=== PATIENT | female | born 2005 | race Caucasian/White ===

== ENCOUNTER 2025-01-22 18:10 | Outpatient (CLI) | payer BC, SELFPAY ==
[2025-01-22 18:10] VITALS: BMI 28.3
[2025-01-22 18:28] VITALS: BP 127/80; PULSE 104
[2025-01-22 18:52] VITALS: BP 127/86; PULSE 93
[2025-01-22 19:08] VITALS: BP 124/67; PULSE 89
[2025-01-22 19:18] LABS: Nitrazine Paper, PH Negative
[2025-01-22 19:28] VITALS: BP 134/85; PULSE 106
[2025-01-22 19:38] VITALS: TEMP 36.8
[2025-01-22 19:43] VITALS: BP 134/85; PULSE 106; RESP 16; TEMP 36.8; O2SAT 100
== END 2025-01-22 19:43 | disposition home or self-care (01) ==
LOC: OPOB 18:15 → OBGYN 18:15
PROVIDERS: PCP Family Medicine; Visit Provider Family Medicine
DX: O26.899 Other specified pregnancy related conditions, unspecified trimester (principal); Z3A.00 Weeks of gestation of pregnancy not specified; W18.30XA Fall on same level, unspecified, initial encounter
CPT/HCPCS: 59025; 83986; 99211

== ENCOUNTER 2025-03-22 11:25 | Inpatient (IN) | payer OTHER, SELFPAY ==
[2025-03-22] VITALS (46 sets, daily range): BP systolic 94–155; BP diastolic 51–105; PULSE 81–127; TEMP 36.1–39.3; O2SAT 97–100; BMI 29.3
[2025-03-22 11:51] LABS: Hematocrit 36.2 % (36-47); Hemoglobin 11.90 g/dL (11.27-16.99); Mean Corpuscular HGB Conc 32.9 g/dL (30-55); Mean Corpuscular Hemoglobin 28.8 pg (27-33); Mean Corpuscular Volume 87.7 fl (85-98); Nucleated Red Blood Cells % 0 %; Platelet Count 308 10^3/cmm (157-399); Red Blood Count 4.13 10^6/uL (3.85-5.65); White Blood Count 18.21 10^3/uL (3.29-11.43)
--- NOTE | 2025-03-22 11:52 | US_ITS ---
WS: [id number] BIOPHYSICAL PROFILE AMNIOTIC FLUID HISTORY: decreased movement COMPARISON: 11/11/2024 position: Position cannot be determined by the imaging submitted. Cardiac activity: 144 bpm. Cervix: Not imaged. Placenta: Posterior, no previa or abruption. Placenta grade: 3 Parameters are as follows: Breathin Movement: 2 Tone: 2 Fluid volume: 2 Amniotic Fluid Index: 8.8 cm US/US OB BPP wo NST 96258 IMPRESSION: 1. Biophysical profile score: 8/8. 2. Normal amniotic fluid amount. 3. Grade 3 placenta.
[2025-03-22] MEDS: ondansetron 2 mg/ML SDV 2 mL 4 MG IVP (14:25)
--- NOTE | 2025-03-22 14:26 | ANES.PAUD2 ---
Pre-Anesthetic Update Pre-Anesthetic Assessment: Date of Surgery/Procedure: 03/22/25 Any changes to Pre-Anesthetic Assessment?: No Labs Last 48hrs: Short CBC 03/22/25 Range/Units 11:10 WBC 18.21 H (3.29-11.43) 10^ 3/uL Hgb 11.90 (11.27-16.99) g/ dL Hct 36.2 (36-47) % MCV 87.7 (85-98) fl Plt Count 308 (157-399) 10^3/c mm Neut % (Auto) 86.9 % Neut # (Auto) 15.84 H (1.8-7.7) 10^3/u L Blood Bank 03/22/25 11:10 Blood Type A Negative Rho(D) Type Rh negative Antibody Screen Positive Vitals: Temperature 97.0 F L 03/22/25 14:20 Pulse Rate 103 H 03/22/25 14:20 Respiratory Effort Spontaneous, Non- Labored 03/22/25 11:25 Respiratory Depth Normal 03/22/25 11:25 Respiratory Patter n Normal 03/22/25 11:25 Blood Pressure 115/64 03/22/25 14:20 Oxygen Delivery Me thod Room Air 03/22/25 11:25 Exam: Pre-Anes Outpt Exam: alert and oriented x 3 Additional Exam Findings (including area of procedure): WBC 18, afebrile, no signs of infection. Anesthesia Procedures Epidural: Time Out Performed: Yes Consents Signed: Procedure Consent Consent: from patient, risks and benefits reviewed and patient agrees to proceed Lumbar Level: L3-L4 Epidural position: sitting Epidural procedure: sterile prep of area, 1% lidocaine to numb the area, 18 g needle, negative for paresthesia passed, test dose given, 1.5% xylocaine 1:200k epi, placed PCEA, no systemic response, sterile dressing applied, L.U.D. no apparent complications and 0.2% Ropiavacaine @ mls/hr (10) Additional Comments: TRISTON at 4.5. negative heme/CSF with aspiration. taped at 12 at skin. tolerated well.
[2025-03-22] MEDS: ROPivacaine premix 200 MG/100 ML PREMIX 10 MG EPIDURAL (15:33)
--- NOTE | 2025-03-22 16:59 | PM.OPHPUD ---
Labor & Delivery H&P Update Date of Procedure: March 22, 2025 Date H&P Performed: 03/16/25 Admission Diagnosis: IUP at 38 weeks 5 days gestation Active labor Planned procedure: Expectant management of labor and delivery
[2025-03-22] MEDS: oxytocin 30 UNIT/500 ML BAG 600 UNIT IV (20:02)
--- NOTE | 2025-03-22 20:16 | PM.DELIVERY ---
Delivery Note: Date of delivery: March 22, 2025 Procedure: Normal spontaneous vaginal Estimated blood loss (mL): 150 Pre-Delivery Course: The patient had routine care at [facility]. There were no complications during the . labs: Blood type A+, antibody negative, hepatitis B nonreactive, hepatitis C nonreactive, HIV nonreactive, rubella immune, GC chlamydia negative, RPR nonreactive, UDS negative, she passed her glucose tolerance test, GBS negative. Delivery: This is a 19-year-old G1, P0 at 38 weeks 5 days gestation who was admitted to labor and delivery in active labor. She underwent artificial rupture membranes with clear fluid approximately 7-1/2 hours prior to delivery. She received an epidural for pain management. I stopped to check on the patient around 1710 and she was resting and the nurse had recently done a cervical check that was 5 cm dilated. The patient was complete and feeling pressure to push around 1930. When I presented I noted that there was tachycardia with moderate variability and some variable decelerations. Nursing notified me that maternal temp was recently taken and was 102.8. The patient only had to push through about 8 contractions to have a normal spontaneous vaginal delivery of a viable female infant weight 3010 g, 6 pounds 10 ounces, Apgars 9 and 9 over an intact perineum. The was suctioned at delivery and placed on the mother's chest. After 1 minute 20 seconds the cord was clamped and cut. The placenta was delivered grossly intact though somewhat small but normal to inspection. There was a very small second-degree perineal laceration that was sutured using 3-0 chromic. Mother and were doing well after delivery. Nursing then notified me that when they presented for shift change to report they found that the mother had a heating blanket on her on level 6. They had taken the blanket off just prior to pushing. It is unclear if this has contributed to the elevated temperature and tachycardia. A&P Assessment and plan 1. Normal spontaneous vaginal delivery: Routine care 2. Elevated temperature: At this time it is assumed that it was related to her heating blanket being up to level 6. Recommend with holding the heating blanket. We will monitor for any signs or symptoms of infection. PDMP PDMP Reviewed: Not Reviewed Coding Level of Care Code Acute Code for Chg Fwd Diagnoses Normal spontaneous vaginal delivery O80 Elevated temperature R50.9
--- NOTE | 2025-03-22 20:42 | PC.NURSE ---
AT 1924 Zackary MONDRAGON, RN ENTERED ROOM TO CHECK PATIENT. WHEN MOVING BLANKET OFF PATIENT THIS RN OBSERVED A HEATING BLANKET ON THE PATIENT AT A HIGHER SETTING WELL A NORMAL BLANKET. THE HEATING BLANKET WAS REMOVED AT THIS TIME AND A TEMPORAL TEMPERATURE WAS TAKEN AT 1927- 98.4. PATIENT WAS CHECKED AND PHYSICIAN NOTIFIED OF PATIENT BEING COMPLETE AND +2 STATION AT THIS TIME. ORDERS TO START PUSHING. WHILE PUSHING 1946 AXILLARY TEMP WAS TAKEN- 102.8. PHYSICIAN NOTIFIED AT BEDSIDE. 1957 INFANT DELIVERED. 15MIN INFANT RECTAL TEMP 102. AFTER DELIVERY THIS RN NOTIFIED DR. WESTBROOK AND DR. VILLAREAL OF PATIENTS USE OF HEATING BLANKET PRIOR TO DELIVERY AND THIS RN DISCONTINUING USE ONCE IT WAS DISCOVERED. AT THIS TIME ORDERS TO CONTINUE TO CHECK INFANT TEMP TO ENSURE IT IS DROPPING. AFTER DELIVERY THIS RN ASKED PATIENT HOW LONG THEY HAD BEEN USING HEATING BLANKET. THE PATIENT REPORTED THAT SHE HAD BEEN USING IT SINCE HER EPIDURAL WAS PLACED AT APPROXIMATELY 1530.
[2025-03-23] VITALS (9 sets, daily range): BP systolic 112–136; BP diastolic 60–93; PULSE 79–122; RESP 16–18; TEMP 36.3–37; O2SAT 97–99
[2025-03-23] MEDS: PRENATAL VIT NO.130/IRON/FOLIC 1 EACH TABLET PO (09:01)
[2025-03-23 09:18] LABS: Hematocrit 32.3 % (36-47); Hemoglobin 10.40 g/dL (11.27-16.99); Mean Corpuscular HGB Conc 32.2 g/dL (30-55); Mean Corpuscular Hemoglobin 29.1 pg (27-33); Mean Corpuscular Volume 90.2 fl (85-98); Platelet Count 268 10^3/cmm (157-399); Red Blood Count 3.58 10^6/uL (3.85-5.65); White Blood Count 24.46 10^3/uL (3.29-11.43)
--- NOTE | 2025-03-23 09:25 | ANE.PACU2 ---
Inpatient post-anesthesia follow up: Airway intact: Yes Vital signs: Temperature 98.0 F Pulse Rate 100 Respiratory Rate 16 Blood Pressure 120/72 Pulse Oximetry 99 Oxygen Delivery Me thod Room Air Oxygen Flow Rate Fraction of Inspir ed Oxygen Hydration adequate: Yes Nausea and vomiting: No Pain level: 1 Mental status: Baseline Epidural Start/End: Epidural Start Date: 03/22/25 Epidural Start Time: 14:56 Epidural End Date: 03/22/25 Epidural End Time: 22:40
--- NOTE | 2025-03-23 17:03 | P.DS_ITS ---
Discharge Providers Date of Admission: 03/22/25 11:25 Date of Discharge: March 23, 2025 Attending Provider at Admission: Jenna Henriquez MD Attending Provider at Discharge: Jenna Henriquez MD Primary Care Provider: Jenna Henriquez MD Diagnoses at Discharge Discharge Diagnosis 1. Normal spontaneous vaginal delivery: 2. Elevated temperature: Reason for Visit Reason for Visit: Low abd pain, Dec mvmnt Hospital Course Hospital Course This is a 19-year-old G1 now P1 who had a normal spontaneous vaginal delivery of a viable female infant yesterday after presenting to labor and delivery in active labor. There were no complications during the labor or delivery. Mother has been ambulating, tolerating a regular diet, has average vaginal bleeding and is requesting discharge home. Physical Exam Narrative: Alert and oriented, sitting up in bed, heart regular rate and rhythm, lungs clear to auscultation bilaterally, abdomen is soft and nontender, fundus is firm, extremities have no calf tenderness but 1+ edema Urinary Catheter Management: Jeronimo: Cath Placed During This Visit: yes, but has since been removed by the nurse Reason for Continuing Indwelling Catheter: Decision to DC Catheter Urinary Catheter Date of Insertion: 03/22/25 Urinary Catheter Time of Insertion: 16:10 Date Urinary Catheter Removed: 03/22/25 Time Urinary Catheter Discontinued: 19:40 Discharge Data Studies Completed and Pending Completed Studies During Hospitalization Category Date Time Status US OB BPP wo NST 12862 Stat Ultrasound 03/22/25 11:52 Completed Pending at discharge Category Date Time Status Antibody Identification Routine Lab 03/22/25 11:10 Results Complete Crossmatch Routine Lab 03/22/25 11:10 Results Rho D Immune Globulin Routine Lab 03/22/25 11:10 Results Type and Screen Routine Lab 03/22/25 11:10 Results Radiology Impressions Obstetrics US/Biophysical Profile 03/22/25 11:52 IMPRESSION: 1. Biophysical profile score: 8/8. 2. Normal amniotic fluid amount. 3. Grade 3 placenta. Laboratory Results WBC 24.46 10^3/uL (3.29-11.43) H 03/23/25 09:05 RBC 3.58 10^6/uL (3.85-5.65) L 03/23/25 09:05 Hgb 10.40 g/dL (11.27-16.99) L 03/23/25 09:05 Hct 32.3 % (36-47) L 03/23/25 09:05 MCV 90.2 fl (85-98) 03/23/25 09:05 MCH 29.1 pg (27-33) 03/23/25 09:05 MCHC 32.2 g/dL (30-55) 03/23/25 09:05 RDW 13.5 % (12.1-15.1) 03/23/25 09:05 Plt Count 268 10^3/cmm (157-399) 03/23/25 09:05 MPV 9.8 fL (7.4-10.4) 03/23/25 09:05 Neut % (Auto) 86.9 % 03/22/25 11:10 Lymph % (Auto) 7.0 % 03/22/25 11:10 [place] % (Auto) 5.5 % 03/22/25 11:10 Eos % (Auto) 0.1 % 03/22/25 11:10 Baso % (Auto) 0.2 % 03/22/25 11:10 Neut # (Auto) 15.84 10^3/uL (1.8-7.7) H 03/22/25 11:10 Lymph # (Auto) 1.3 10^3/uL (0.8-4.8) 03/22/25 11:10 [place] # (Auto) 1.0 10^3/uL (0.2-0.9) H 03/22/25 11:10 Eos # (Auto) 0.0 10^3/uL (0.0-0.8) 03/22/25 11:10 Baso # (Auto) 0.0 10^3/uL (0.0-0.1) 03/22/25 11:10 Nucleated RBC % (auto) 0 % 03/22/25 11:10 Nucleated RBCs # 0.0 /100WBC 03/22/25 11:10 Blood Type A Negative 03/22/25 11:10 Rho(D) Type Rh negative 03/22/25 11:10 Antibody Screen Positive 03/22/25 11:10 Antibody Identification Anti-D 03/22/25 11:10 Screen Negative (Negative) 03/23/25 09:05 Vitals Last Vital Signs Temp 97.4 F L 03/23/25 16:00 Pulse 87 03/23/25 16:00 Resp 16 03/23/25 16:00 BP 112/83 03/23/25 16:00 Pulse Ox 99 03/23/25 16:00 O2 Del Method Room Air 03/23/25 16:00 Discharge Plan Discharge Patient Disposition: Home Condition: Stable Prescriptions: Continued 1 mg Tablet 1 tab PO DAILY Discharge Order = DC NOW: Discharge Order (Routine); Ordered 03/23/25 Ordered By: Jenna Henriquez Referrals: Jenna Henriquez MD [Primary Care Provider, [facility]] - 1 month Discharge Diet: Usual diet Discharge Activity: Limit activity as instructed Patient Instructions: Depression (DC), Opioid Safety (DC), Preeclampsia and Eclampsia After Delivery (GEN), Hemorrhage (DC), OB Discharge Report, OB Food/Drug Interaction Guide, OB Care at Home, Opioid Safety, OB Vaginal Deliveries, Patient Portal & [place] Instructions, Abnormal Bleeding Activity Restrictions/Additional Instructions: Nothing per vagina for 6 weeks Discharge Attestations Time Spent in Discharge Care*: less than 30 min Quality Metrics Clinical Quality Measures [ No reported AMI, CVA or VTE this stay] Coding Level of Care Code Acute Code for Chg Fwd Diagnoses Normal spontaneous vaginal delivery O80 Elevated temperature R50.9
== END 2025-03-23 21:03 | disposition home or self-care (01) | DRG 807 ==
LOC: OPOB 11:25 → OBGYN 11:25
PROVIDERS: Admitting Provider Family Medicine; PCP Family Medicine; Visit Provider Family Medicine
DX: O76 Abnormality in fetal heart rate and rhythm complicating labor and delivery (principal); Z37.0 Single live birth; O70.1 Second degree perineal laceration during delivery; Z3A.38 38 weeks gestation of pregnancy
CPT/HCPCS: 36415; 36430; 51702; 59025; 59409; 76819; 80503; 85025; 85027; 85460; 86850; 86870; 86900; 90384; 96372; 96374; 99211; J2405; J2590; J2795; J7030; J7121; J9999

== ENCOUNTER 2025-03-31 07:12 | Emergency (ER) | payer OTHER, SELFPAY ==
[2025-03-31 07:19] VITALS: BP 124/83; PULSE 80; RESP 16; TEMP 36.8; O2SAT 97; BMI 29.2
--- NOTE | 2025-03-31 07:39 | ED_ITS ---
HPI - Female Genitourinary 2 General: Chief complaint: Vaginal Bleeding Stated complaint: 1 Week Post pardom Bleeding bad Time Seen by Provider: 03/31/25 07:14 History of Present Illness: 19-year-old [facility] she is 1 week from normal vaginal delivery. She has had increasing bleeding overnight passed a couple of clots. She did not have any fever sweats or chills some mild pelvic cramping. Reviewed the history note. Patient did have a temp and some tachycardia. It was thought to be due to an electric blanket that the mother had on at the time of delivery. No difficulty at the time of delivery with the placenta delivery. Associated symptoms: Deny abdominal pain Related Data Home Medications ?Medication ?Instructions ?Recorded ?Confirmed vitamins no.167-folic 1 tab PO DAILY 03/31/25 03/31/25 acid 400 mcg-dha 25 mg chewable tablet (One-A-Day ) Previous Rx's ?Medication ?Instructions ?Recorded doxycycline hyclate 100 mg capsule 100 mg PO BID 10 da ys #20 caps 03/31/25 Allergies Allergy/AdvReac Type Severity Reaction Status Date / Time No Known Allergies Allergy Verified 03/22/25 16:44 Review of Systems 2 Const: Denies: fever(s) or chills Card: Denies: chest pain Resp: Denies: dyspnea GI: Denies: abdominal pain : Denies: dysuria, urinary frequency or urinary urgency Musc: Denies: neck pain or back pain Skin/Breast: Denies: rash Physical Exam 2 Const: COMMON NORMALS: no acute distress GENERAL APPEARANCE: cooperative and comfortable ORIENTATION/CONSCIOUSNESS: Yes awake, Yes oriented to person, Yes oriented to place and Yes oriented to time HENMT: COMMON NORMALS: normocephalic, atraumatic and hearing grossly normal bilaterally HEAD & SCALP: normocephalic and atraumatic Resp: COMMON NORMALS: normal respiratory effort, No retractions, No use of accessory muscles and clear to auscultation bilaterally AUSCULTATION: clear to auscultation bilaterally Cardio: COMMON NORMALS: regular rate, regular rhythm and No murmurs present (Cardio) RATE: regular rate RHYTHM: regular rhythm GI: COMMON NORMALS: Soft to palpation and No hepatosplenomegaly present A USCULTATION: Yes normoactive bowel sounds PALPATION: Yes Soft to palpation, No Tenderness to palpation present (GI), No Guarding due to palpation present (GI) and Yes No hepatosplenomegaly present Extremity: COMMON NORMALS: normal to inspection, capillary refill normal, no clubbing, cyanosis or edema, no calf tenderness and no pedal edema Neuro: SENSORIUM/ORIENTATION: Yes oriented to person, Yes oriented to place and Yes oriented to time Skin: COMMON NORMALS: no rashes or lesions noted GENERAL SKIN EXAM: no rashes or lesions noted Course 2 Vital Signs: Vital signs: Vital Signs Temperature 98.2 F 03/31/25 07:19 Pulse Rate 67 03/31/25 08:34 Respiratory Rate 16 03/31/25 07:19 Blood Pressure 106/64 03/31/25 08:34 Pulse Oximetry 97 03/31/25 08:34 Oxygen Delivery Me thod Room Air 03/31/25 08:34 MDM - Female Medical Decision Making Reviewed her old records send labs showed white count of 24,000 at the time of delivery. She has no white count now her hemoglobin is actually improved from when she was discharged home. Pelvic Ruperto was done she does had some excessive cervical tenderness. There is a little bit of discolored cervical discharge. On exam she had uterine tenderness. Uterus is involuted barely palpable at the pelvic brim now. Suspect she has an endometritis we will start her on doxycycline and have her follow-up with Dr. Henriquez. Medical Records I reviewed the patient's medical records. Lab Data I reviewed the patient's lab results. 03/31/25 07:28 Radiology Impressions Pelvis Ultrasound 03/31/25 07:46 IMPRESSION: 1. Mildly enlarged uterus appropriate for recent state. 2. Mildly enhanced myometrial vascularity. There is no AV malformation identified by ultrasound. This may be due to the recent state. 3. Small amount of complex fluid consistent with blood products along the endometrium. Laboratory Results WBC 9.38 10^3/uL (3.29-11.43) 03/31/25 07:28 RBC 4.59 10^6/uL (3.85-5.65) 03/31/25 07:28 Hgb 12.90 g/dL (11.27-16.99) 03/31/25 07:28 Hct 40.4 % (36-47) 03/31/25 07:28 MCV 88.0 fl (85-98) 03/31/25 07: MCH 28.1 pg (27-33) 03/31/25 07: MCHC 31.9 g/dL (30-55) 03/31/25 07: RDW 13.3 % (12.1-15.1) 03/31/25 07: Plt Count 419 10^3/cmm (157-399) H 03/31/25 07: MPV 8.5 fL (7.4-10.4) 03/31/25 07: Neut % (Auto) 68.3 % 03/31/25 07: Lymph % (Auto) 22.1 % 03/31/25 07: [place] % (Auto) 7.5 % 03/31/25: Eos % (Auto) 1.2 % 03/31/25 07: Baso % (Auto) 0.5 % 03/31/25: Neut # (Auto) 6.41 10^3/uL (1.8-7.7) 03/31/25 07: Lymph # (Auto) 2.1 10^3/uL (0.8-4.8) 03/31/25: [place] # (Auto) 0.7 10^3/uL (0.2-0.9) 03/31/25 07: Eos # (Auto) 0.1 10^3/uL (0.0-0.8) 03/31/25: Baso # (Auto) 0.1 10^3/uL (0.0-0.1) 03/31/25: Nucleated RBC % (auto) 0 % 03/31/25: Nucleated RBCs # 0.0 /100WBC 03/31/25: PT 12.20 SECONDS (12.1-14.9) 03/31/25: INR 0.84 (0.8-1.2) 03/31/25 07: Urine Color Yellow (Yellow) 03/31/25 09:00 Urine Appearance Clear (CLEAR) 03/31/25 09:00 Urine pH 7.0 (5-7) 03/31/25 09:00 Ur Specific [place] 1.015 (1.005-1.030) 03/31/25 09:00 Urine Protein Negative (Negative) 03/31/25 09:00 Urine Glucose (UA) Negative (Normal) 03/31/25 09:00 Urine Ketones Negative (Negative) 03/31/25 09:00 Urine Blood Negative (Negative) 03/31/25 09:00 Urine Nitrate Negative (Negative) 03/31/25 09:00 Urine Bilirubin Negative (Negative) 03/31/25 09:00 Urine Urobilinogen 0.2 mg/dL (Negative) 03/31/25 09:00 Ur Leukocyte Esterase Trace (Negative) A 03/31/25 09:00 Urine RBC 0-2 /hpf (0-2) 03/31/25 09:00 Urine WBC 0-5 /hpf (0-5) 03/31/25 09:00 Ur Squamous Epith Cells 0-5 /hpf (0-5) 03/31/25 09:00 Amorphous Sediment Not Reportable 03/31/25 09:00 Urine Bacteria None seen /hpf (NONE) 03/31/25 09:00 Hyaline Casts 0.81 /lpf 03/31/25 09:00 All radiology interpretation(s) finalized by discharge Discharge Plan Discharge Patient Disposition: Home Clinical Impression: Endometritis Condition: Stable Prescriptions: New doxycycline hyclate 100 mg capsule 100 mg PO BID 10 Days Qty: 20 0RF No Action One-A-Day 400 mcg- 25 mg Tablet,Chewable 1 tab PO DAILY Discharge Orders: Discharge ED (Routine); Ordered 03/31/25 Ordered By: Al Newell Referrals: El Cardenas, [Primary Care Provider, Family Practice] Discharge Diet: Usual diet Discharge Activity: Increase activity as tolerated Patient Instructions: Opioid Safety, Pain Management, Patient Portal & [place] Instructions Activity Restrictions/Additional Instructions: Thank you for choosing [facility] for your healthcare needs today. It is very important that you follow up as instructed or that you return to the Emergency Department should you have concerns or if your condition changes or worsens in any way. Emergency department visits are focused on emergent conditions, in some cases you may require further evaluation on an outpatient basis. You are seen today with complaints of vaginal bleeding ultrasound appeared consistent with your state. Suspect you may have a mild endometritis. These sometimes happen in the course of normal vaginal deliveries. You are put on doxycycline 1 pill twice a day for 10 days follow-up with your primary guest relations associate. (Please note that included in your discharge packet is information concerning opioid safety and pain management. This information is given to all patients were discharged from the ER regardless of their discharge diagnosis or the medicines they usually take or are prescribed.) Print Language: Kyrgyz Coding Level of Care Code ED Physiotherapy Practice Manager for Renu Diaz
[2025-03-31 07:40] LABS: Hematocrit 40.4 % (36-47); Hemoglobin 12.90 g/dL (11.27-16.99); Mean Corpuscular HGB Conc 31.9 g/dL (30-55); Mean Corpuscular Hemoglobin 28.1 pg (27-33); Mean Corpuscular Volume 88.0 fl (85-98); Nucleated Red Blood Cells % 0 %; Platelet Count 419 10^3/cmm (157-399); Red Blood Count 4.59 10^6/uL (3.85-5.65); White Blood Count 9.38 10^3/uL (3.29-11.43)
--- NOTE | 2025-03-31 07:46 | US_ITS ---
WS: [id number] US pelvic complete* [id number] HISTORY: late post hemmorhage COMPARISON: None available. Uterus: 13.2 cm x 9.0 cm x 7.3 cm. Uterus is enlarged. There is mild enhanced myometrial vascularity. Not a configuration to suggest an AVM. Endometrium: 1.1 cm. Small amount of fluid along the endometrium. No retained products of conception are identified. Right ovary: 2.3 cm x 1.5 cm x 2.4 cm. Normal size and vascularity, no cystic or solid masses. Left ovary: Not identified.. No free fluid in the cul-de-sac. US/US pelvic complete* [id number] IMPRESSION: 1. Mildly enlarged uterus appropriate for recent state. 2. Mildly enhanced myometrial vascularity. There is no AV malformation identif ied by ultrasound. This may be due to the recent state. 3. Small amount of complex fluid consistent with blood products along the endo metrium.
[2025-03-31 07:47] LABS: INR 0.84 (0.8-1.2); Prothrombin Time 12.20 SECONDS (12.1-14.9)
[2025-03-31 08:34] VITALS: BP 106/64; PULSE 67; O2SAT 97
[2025-03-31 09:10] LABS: Glucose Urine UA Negative (Normal); Nitrate Urine Negative (Negative); Specific Gravity, Urine 1.015 (1.005-1.030)
[2025-03-31 09:15] LABS: Add Urine Microscopic? YES
[2025-03-31 09:24] LABS: UA Slide Review UA Slide Review Perf
== END 2025-03-31 09:40 | disposition home or self-care (01) ==
PROVIDERS: Emergency Provider Family Medicine; PCP Electrodiagnostic Medicine
DX: O86.12 Endometritis following delivery (principal)
CPT/HCPCS: 36415; 76856; 81001; 85025; 85610; 87070; 87205; 99284